=== PATIENT | male | born 1940 | race Caucasian/White ===

== ENCOUNTER 2024-02-12 19:50 | Inpatient (IN) | payer MEDICARE, OTHER ==
[~2024-02-12] VITALS: Ht 182.9 cm; Wt 105.5 kg
[~2024-02-12 19:50] MED LIST: Carvedilol12.5 MG PO; ELIQUIS5 M2 PO; LISI20 PO; Prinivil10 MG PO; WARF5 PO
[2024-02-12 20:26] LABS: Hematocrit 45.6 % (37.0-53.0); Hemoglobin 15.5 g/dL (13.5-17.5); Mean Corpuscular HGB 30.3 pg (26.0-34.0); Mean Corpuscular Volume 89 fL (80-100); Mean Platelet Volume 11.1 fL (9.1-12.4); Platelet Count 211 K/mm3 (150-400); RDW Coefficient Variation 12.7 % (11.7-14.2); RDW Standard Deviation 41.9 fL (35.1-46.3); Red Blood Cell Count 5.12 M/mm3 (4.30-5.90); White Blood Cell Count 18.93 K/mm3 (4.00-11.30)
[2024-02-12 20:46] LABS: BAND PERCENT MAN 23 % (0-8); BASOPHILS PERCENT MAN 0 % (0-2); EOSINOPHILS PERCENT MAN 0 % (0-6); LYMPHOCYTES ABSOLUTE MAN 0.18 K/mm3 (0.84-5.20); LYMPHOCYTES PERCENT MAN 1 % (21-46); MONOCYTES ABSOLUTE MAN 0.75 K/mm3 (0.16-1.47); MONOCYTES PERCENT MAN 4 % (4-13); NEUTROPHILS ABSOLUTE MAN 17.98 K/mm3 (1.96-9.15); SEG NEUTROPHILS PERCENT MAN 72 % (41-73); TOTAL CELLS COUNTED 100
[2024-02-12 21:12] LABS: Source, Urine Clean Catch
[2024-02-12 21:12] LABS: Albumin, Blood 2.7 g/dL (3.4-5.0); Albumin/Globulin Ratio 0.7 (0.8-1.8); Bilirubin, Total 1.6 mg/dL (0.1-1.0); Bun/Creatinine Ratio 35.7 (12.0-20.0); Calcium, Blood 10.3 mg/dL (8.5-10.1); Creatinine, Blood 1.26 mg/dL (0.60-1.20); Globulin, Blood 3.9 g/dL (2.2-4.0); Potassium, Blood 3.9 mmol/L (3.5-5.5); Total Protein, Blood 6.6 g/dL (6.4-8.2)
[2024-02-12 21:23] LABS: Appearance, Urine Cloudy (Clear); Bilirubin, Urine Neg (Neg); Blood, Urine 5+ (Neg); Color, Urine Amber (P-Yellow); Glucose Qualitative, Urine Neg (Neg); Ketones, Urine 1+ (Neg); Leukocyte Esterase, Urine 3+ (Neg); Nitrite, Urine Neg (Neg); Protein, Urine 3+ (Neg); Specific Gravity, Urine 1.025 (1.003-1.022); Urobilinogen, Urine 1+ (Normal)
[2024-02-12 21:33] LABS: White Blood Cells, Urine TNTC /hpf (0-5)
[2024-02-12 21:34] LABS: Bacteria Many /hpf; Mucus Light (0-Heavy); Squamous Epithelial Cells Rare /hpf (Few); Transitional Epithelial Cells Few /hpf (0-Rare)
[2024-02-12] MEDS ORDERED: Lactated Ringer's 1,000 ML IV SCH (21:45)
[2024-02-12] MEDS ORDERED: CefTRIAXone Sodium 1,000 MG in NS 100 ML IV ONE (21:45)
[2024-02-13] MEDS ORDERED: Ondansetron HCl 2 MG / ML 2ML Vial IV PRN (01:10)
[2024-02-13] MEDS ORDERED: NS 1,000 ML IV SCH (01:10)
[2024-02-13] MEDS ORDERED: Albumin (Human) 25gm/100ml 100 ML IV ONE (01:15)
[2024-02-13 01:26] LABS: International Normalized Ratio 1.35; Prothrombin Time Results 14.1 Sec (9.7-11.5)
[2024-02-13 02:14] VITALS: BP 143/56
[2024-02-13 02:19] LABS: Influenza A, PCR NEGATIVE (NEGATIVE); Influenza B, PCR NEGATIVE (NEGATIVE); Resp Syncytial Virus, PCR NEGATIVE (NEGATIVE); SARS-Cov-2 (COVID-19) PCR, MMC NEGATIVE (NEGATIVE)
--- NOTE | 2024-02-13 03:18 | NUR ---
PATIENT IS A NEW ADMIT FROM THE ED. AXOX 4 AND FOUR PERSON TRANSFER FROM THE [facility] TO BED. HE REPORTS FEELING WEAK TO STAND AT THIS TIME. DENIES CHEST PAIN, SOB, AND N/V. IV ALBUMIN RESTARTED FROM THE ED. TELEMETRY PLACE AND TECH REPORTS VENTRICULAR PACED 62. NORMAL SALINE STARTED @ 100 mL/HR X ONE BAG. SCATTERED BRUISING AND SKIN TEARS ON ELBOWS/FOREARM WITH ADDITIONAL BRUISING ON RIBS. PATIENT REPORTS AFTER HOME GLF HE HAD TO CRAWL TO HIS PHONE TO CALL FOR HELP. LIVES ALONE. ORIENTED TO CALL LIGHT SYSTEM. TM
[2024-02-13 07:24] VITALS: BP 130/54
[2024-02-13] MEDS ORDERED: FURO20 PO (08:21)
[2024-02-13 08:32] LABS: Hematocrit 41.7 % (37.0-53.0); Mean Corpuscular HGB 29.9 pg (26.0-34.0); Mean Corpuscular HGB Conc 33.6 g/dL (31.5-36.5); Mean Corpuscular Volume 89 fL (80-100); Mean Platelet Volume 11.3 fL (9.1-12.4); Platelet Count 190 K/mm3 (150-400); RDW Coefficient Variation 13.1 % (11.7-14.2); RDW Standard Deviation 42.6 fL (35.1-46.3); Red Blood Cell Count 4.68 M/mm3 (4.30-5.90); White Blood Cell Count 15.71 K/mm3 (4.00-11.30)
[2024-02-13 08:49] LABS: Albumin, Blood 2.6 g/dL (3.4-5.0); Albumin/Globulin Ratio 0.8 (0.8-1.8); Bilirubin, Total 1.1 mg/dL (0.1-1.0); Bun/Creatinine Ratio 40.7 (12.0-20.0); Calcium, Blood 9.8 mg/dL (8.5-10.1); Creatinine, Blood 1.35 mg/dL (0.60-1.20); Globulin, Blood 3.4 g/dL (2.2-4.0); Potassium, Blood 3.8 mmol/L (3.5-5.5)
[2024-02-13 08:54] LABS: BAND PERCENT MAN 13 % (0-8); BASOPHILS PERCENT MAN 0 % (0-2); EOSINOPHILS PERCENT MAN 0 % (0-6); LYMPHOCYTES ABSOLUTE MAN 0.62 K/mm3 (0.84-5.20); LYMPHOCYTES PERCENT MAN 4 % (21-46); MONOCYTES ABSOLUTE MAN 0.78 K/mm3 (0.16-1.47); MONOCYTES PERCENT MAN 5 % (4-13); NEUTROPHILS ABSOLUTE MAN 14.29 K/mm3 (1.96-9.15); SEG NEUTROPHILS PERCENT MAN 78 % (41-73); TOTAL CELLS COUNTED 100
[2024-02-13] MEDS ORDERED: Enoxaparin 40 MG/0.4 ML SYR SC SCH (09:00)
[2024-02-13] MEDS ORDERED: Polyethylene Glycol 3350 17 gm PO PRN (11:10)
[2024-02-13] MEDS ORDERED: Acetaminophen 500 MG Tab PO PRN (11:10)
[2024-02-13] MEDS ORDERED: NS 250 ML IV PRN (13:35)
[2024-02-13] MEDS ORDERED: CefTRIAXone Sodium 1,000 MG in NS 100 ML IV SCH (15:00)
[2024-02-13 15:37] VITALS: BP 164/62
[2024-02-13] MEDS ORDERED: Carvedilol 6.25 MG Tab PO SCH (17:00)
--- NOTE | 2024-02-13 17:57 | NUR ---
SHIFT SUMMARY: PT A&O X4. PLEASANT AND COOPERATIVE WITH CARE. TEA COLORED URINE NOTED TODAY. 2 POSITIVE CULTURES CALLED TO THIS RN OF GRAM NEGATIVE BACILI. DR. CORBIN AWARE; NO NEW ORDERS. ATTEMPTED TO MAKE CALLS REGARDING PT ELIQUIS PRESCRIPTION. PCP ON FILE HAS NOT SEEN PT SINCE 2019. PT STATES CURRENT PCP "IS [address]." WHEN ASKED ABOUT ELIQUIS, PT STATED HE WAS STARTED ON IT D/T PACEMAKER. IV ABX INFUSED W/O COMPLICATIONS. PT ABLE TO WORK WITH PHYSICAL THERAPY THIS SHIFT; RECOMMENDING SNF. UPDATED ON PLAN OF CARE. TELE IN PLACE RUNNING VENTRICULAR PACED @60 BPM. CALL LIGHT IN REACH. BED IN LOWEST POSITION.
[2024-02-13 20:31] VITALS: BP 140/66
[2024-02-13] MEDS ORDERED: Lactobacil 2-S.Thermo-Bifido 1 1 Cap PO SCH (21:00)
[2024-02-13] MEDS ORDERED: Docusate Sodium/Senna 1 Tab PO SCH (21:00)
--- NOTE | 2024-02-14 03:43 | NUR ---
NO NEW CONCERNS. PT INCONTINENT OF URINE WHILE SLEEPING, ATTENDS CHANGED. WILL USE URINAL WHILE AWAKE, URINE TEA COLORED. ENCOURAGE PT TO REPOSITION IN BED, ABLE TO HELP PULL HIMSELF UP IN BED, TURNS INDEPENDENTLY. UP 1 ASSIST WITH FWW/GB, HAS NOT GOTTEN OOB THIS SHIT. SLEEPS WITH HOB ELEVATED. CALL LIGHT IN REACH. BED ALARM ON. SIDE RAILS UP X3.
[2024-02-14 05:14] VITALS: BP 132/62
[2024-02-14 05:42] LABS: Hemoglobin 13.1 g/dL (13.5-17.5); Mean Corpuscular HGB 30.3 pg (26.0-34.0); Mean Corpuscular HGB Conc 34.5 g/dL (31.5-36.5); Mean Corpuscular Volume 88 fL (80-100); Mean Platelet Volume 11.8 fL (9.1-12.4); Platelet Count 158 K/mm3 (150-400); RDW Coefficient Variation 13.2 % (11.7-14.2); RDW Standard Deviation 42.6 fL (35.1-46.3); Red Blood Cell Count 4.32 M/mm3 (4.30-5.90); White Blood Cell Count 11.24 K/mm3 (4.00-11.30)
[2024-02-14 06:17] LABS: Albumin, Blood 2.4 g/dL (3.4-5.0); Anion Gap 11 mmol/L (3-11); Blood Urea Nitrogen 71 mg/dL (8-24); CO2, Blood 24 mmol/L (21-32); Calcium, Blood 9.5 mg/dL (8.5-10.1); Chloride, Blood 105 mmol/L (98-108); Creatinine, Blood 1.73 mg/dL (0.60-1.20); Glomerular Filtration Rate 39 (60-); Glucose, Blood 160 mg/dL (70-99); Magnesium, Blood 2.4 mg/dL (1.6-2.4); Phosphorus, Blood 3.2 mg/dL (2.5-4.9); Potassium, Blood 3.7 mmol/L (3.5-5.5); Sodium, Blood 136 mmol/L (136-145)
[2024-02-14] MEDS ORDERED: NS 500 ML IV SCH (07:15)
[2024-02-14 07:33] VITALS: BP 142/68
[2024-02-14] MEDS ORDERED: Cholecalciferol 1000 Unit Tablet (=25MCG) PO SCH (09:00)
[2024-02-14] MEDS ORDERED: Lisinopril 20 MG Tab PO SCH (09:00)
[2024-02-14 15:00] VITALS: BP 129/69
--- NOTE | 2024-02-14 18:49 | NUR ---
PATIENT A&O X 2-3 PERIODS OF DROWSINESS AND OVERESTIMATING ABILITY TO WALK TO BATHROOM. A&OX1 TO [place] BUT PATIENT REMAINS WEAK, PERIODS OF CONTIENENCE AND INCONTENCE. PATIENT C/O HARD TIEM SWALLOWING DRY FOODS, CONSULT PLACED FOR SPEECH THERAPY TO REEVALUATE PATIENT DUE TO NEW COMPLAINTS OF DIFFICULTY SWALLOWING WITH FOOD, OK WITH THIN LIQUIDS NO ISSUES OBSERVED WHEN DRINKING LIQUIDS. VSS.
[2024-02-14 19:25] VITALS: BP 135/64
--- NOTE | 2024-02-14 22:16 | NUR ---
UPDATED DAUGHTER IN LAW SHABBIR OVER THE PHONE. PT GAVE PERMISION.
[2024-02-15 03:44] VITALS: BP 159/76
[2024-02-15 07:34] VITALS: BP 147/76
[2024-02-15 08:03] LABS: Bun/Creatinine Ratio 51.4 (12.0-20.0); Calcium, Blood 9.9 mg/dL (8.5-10.1); Creatinine, Blood 1.42 mg/dL (0.60-1.20); Potassium, Blood 3.8 mmol/L (3.5-5.5)
[2024-02-15 15:19] VITALS: BP 147/72
--- NOTE | 2024-02-15 18:08 | NUR ---
SUMMARY- PT AAOX3-4 THIS SHIFT. PT UNAWARE OF EXACT SITUATION. X1-2 ASSIST TO BSC. PT HAS MINIMAL APPETITE. NO COMPLAINTS OF PAIN THIS SHIFT.
[2024-02-15 19:19] VITALS: BP 149/108
[2024-02-16 02:57] VITALS: BP 152/77
--- NOTE | 2024-02-16 05:08 | NUR ---
SHIFT SUMMARY PT A&OX3 AND ANSWERS QUESTIONS APPROPRIATELY. RECEIVED HS MEDICATIONS 1 AT A TIME. PT HAS BRACE ON R KNEE FROM HOME. VSS, NO COMPLAINTS OF CP/PRESSURE OR SOB. PT SPENT MOST OF SHIFT RESTING IN BED WITH EYES CLOSED AND RESPIRATIONS EVEN AND UNLABORED. NO ACUTE EVENTS AT THIS TIME. PT LEFT IN A POSITION OF SAFETY WITH FALL PRECAUTIONS IN PLACE AND CALL LIGHT IN REACH.
[2024-02-16 05:36] LABS: Hematocrit 40.7 % (37.0-53.0); Hemoglobin 13.6 g/dL (13.5-17.5); Mean Corpuscular HGB Conc 33.4 g/dL (31.5-36.5); Mean Corpuscular Volume 90 fL (80-100); Mean Platelet Volume 11.9 fL (9.1-12.4); Platelet Count 150 K/mm3 (150-400); RDW Coefficient Variation 13.2 % (11.7-14.2); RDW Standard Deviation 43.8 fL (35.1-46.3); Red Blood Cell Count 4.54 M/mm3 (4.30-5.90); White Blood Cell Count 11.59 K/mm3 (4.00-11.30)
[2024-02-16 06:04] LABS: Albumin, Blood 2.3 g/dL (3.4-5.0); Anion Gap 9 mmol/L (3-11); Blood Urea Nitrogen 64 mg/dL (8-24); Bun/Creatinine Ratio 55.2 (12.0-20.0); CO2, Blood 26 mmol/L (21-32); Calcium, Blood 10.4 mg/dL (8.5-10.1); Chloride, Blood 107 mmol/L (98-108); Creatinine, Blood 1.16 mg/dL (0.60-1.20); Glomerular Filtration Rate 62 (60-); Glucose, Blood 137 mg/dL (70-99); Phosphorus, Blood 2.4 mg/dL (2.5-4.9); Sodium, Blood 138 mmol/L (136-145)
[2024-02-16 07:18] VITALS: BP 152/87
[2024-02-16] MEDS ORDERED: CEFTRIAXON1 GM/50 M1 IV (14:44)
[2024-02-16] MEDS ORDERED: VITAMIN D5000 UNIT PO (14:46)
[2024-02-16] MEDS ORDERED: DOCUZEN 8.6-501 EACH PO (14:46)
[2024-02-16] MEDS ORDERED: VISBIOME 112.51 EACH PO (14:46)
[2024-02-16 15:09] VITALS: BP 139/71
[2024-02-16 15:54] LABS: SARS-Cov-2 (COVID-19) PCR, MMC NEGATIVE (NEGATIVE)
--- NOTE | 2024-02-16 18:04 | NUR ---
DISCHARGE SUMMARY [facility] PT LEFT ROOM PRIOR TO THIS NOTE. THIS NURSE CALLED TO GIVE REPORT, NO ANSWER. IV IN PLACE AT TIME OF DC. PT'S BELONGINGS RETURNED.
== END 2024-02-16 17:38 | DRG 698 ==
LOC: ER 19:50 → MEDS 19:51
PROVIDERS: Emergency Medicine; Family Medicine; Internal Medicine; ADMIT Internal Medicine
PROC: 30233J1 Transfusion of Nonautologous Serum Albumin into Peripheral Vein, Percutaneous Approach (ICD-10-PCS; principal; 2024-02-13)
DX: N99.89 Other postprocedural complications and disorders of genitourinary system (principal); A41.9 Sepsis, unspecified organism; M62.82 Rhabdomyolysis; E87.20 Acidosis, unspecified; B96.20 Unspecified Escherichia coli [E. coli] as the cause of diseases classified elsewhere; I10 Essential (primary) hypertension; Z95.0 Presence of cardiac pacemaker; Z79.01 Long term (current) use of anticoagulants; Z79.899 Other long term (current) drug therapy; E86.0 Dehydration; E83.52 Hypercalcemia; Y83.8 Other surgical procedures as the cause of abnormal reaction of the patient, or of later complication, without mention of misadventure at the time of the procedure
CPT/HCPCS: 0241U; 36415; 70450; 71045; 74177; 74230; 80048; 80053; 80069; 81001; 82550; 83605; 83735; 83880; 85025; 85027; 85610; 87040; 87077; 87086; 87186; 92610; 92611; 93005; 93010; 96365-59; 97110; 97116; 97162; 97165; 97530; 99285-25; A9270; J0696; J1650; J7030; J7050; J7120; P9047; Q9967; U0002

== ENCOUNTER 2025-02-09 11:06 | Emergency (ER) | payer MEDICARE, OTHER ==
[~2025-02-09] VITALS: Ht 177.8 cm; Wt 104.3 kg
[~2025-02-09 11:06] MED LIST changes: +CEFTRIAXON1 GM/50 M1 IV; +DOCUZEN 8.6-501 EACH PO; +FURO20 PO; +VISBIOME 112.51 EACH PO; +VITAMIN D5000 UNIT PO
[2025-02-09 11:28] VITALS: BP 182/104
== END 2025-02-09 12:44 | disposition home or self-care (01) ==
LOC: ER 11:06
DX: S00.83XA Contusion of other part of head, initial encounter (principal); W01.0XXA Fall on same level from slipping, tripping and stumbling without subsequent striking against object, initial encounter; Z79.01 Long term (current) use of anticoagulants; Z79.899 Other long term (current) drug therapy; Z95.0 Presence of cardiac pacemaker
CPT/HCPCS: 70450; 70486; 99283-25